=== PATIENT | male | born 1950 | race Caucasian/White ===

== ENCOUNTER 2024-11-13 07:41 | Emergency (ER) | payer BC, MEDICARE ==
--- NOTE | 2024-11-13 08:00 | ED ---
General Adult HPI - General Stated complaint: Cardiac Arrest Time Seen by Provider: 11/13/24 07:44 Source: RN notes reviewed, old records reviewed Limitations: altered mental status, physical limitation - History of Present Illness Initial comments: 74-year-old male presents as an afk-rp-sigejiif unwitnessed cardiac arrest. Patient was at a diner where he was found in his vehicle unresponsive. Parame dics were called and the patient was noted to be in a PEA arrest. Unknown downtime. CPR was started and the patient was intubated and brought to the hospital. He received chest compressions by the Chung device he had received 5 total doses of epinephrine during transport. His rhythm had changed to asystole shortly after paramedics began resuscitation. He remained in asystole. He received an ET tube and BVM ventilation. Patient had apparently reported cardiac history. No further history known at the time of arrival. Review of Systems ROS Statement: Those systems with pertinent positive or pertinent negative responses have been documented in the HPI. ROS Other: All systems not noted in ROS Statement are negative. General Exam General appearance: other (Cyanotic) Head exam: Present: atraumatic, normocephalic Eye exam: Present: other (Fixed 5 mm bilaterally) Respiratory exam: Present: other (Minimal bilateral air entry with BVM) Cardiovascular Exam: Present: other (No spontaneous heart sounds) GI/Abdominal exam: Absent: distended Extremities exam: Present: pedal edema Neurological exam: Present: other (No gag, no corneal reflex, no spontaneous respirations) Skin exam: Present: cyanosis Medical Decision Making - Medical Decision Making Was pt. sent in by a medical professional or institution (, PA, DIGITAL MARKETING INTERN, urgent care, hospital, or residential...) When possible be specific @ -No Did you speak to anyone other than the patient for history (EMS, parent, family, police, friend...)? What history was obtained from this source @ -Paramedics provide history and details of prehospital resuscitation. Did you review nursing and triage notes (agree or disagree)? Why? @ -I reviewed and agree with nursing and triage notes Were old charts reviewed (outside hosp., previous admission, EMS record, old EKG, old radiological studies, urgent care reports/EKG's, residential records)? Report findings @ -No old charts were reviewed Differential Diagnosis cardiac arrest H's and T's EKG interpreted by me (3pts min.). @ -As above X-rays interpreted by me (1pt min.). @ -None done CT interpreted by me (1pt min.). @ -None done U/S interpreted by me (1pt. min.). @ -None done What testing was considered but not performed or refused? (CT, X-rays, U/S, labs)? Why? @ -None What meds were considered but not given or refused? Why? @ -None Did you discuss the management of the patient with other professionals (janessa dunlap i.e. , PA, DIGITAL MARKETING INTERN, lab, RT, psych nurse, manager social work, mastic floor layer, teacher, targeting acquisition officer, briefcase sewer)? Give summary @ -No Was smoking cessation discussed for >3mins.? @ -No Was critical care preformed (if so, how long)? @ -No Were there social determinants of health that impacted care today? How? (Homelessness, low income, unemployed, alcoholism, drug addiction, transportation, low edu. Level, literacy, decrease access to med. care, snf, rehab)? @ -No Was there de-escalation of care discussed even if they declined (Discuss DNR or withdrawal of care, Hospice)? DNR status @ -No What co-morbidities impacted this encounter? (DM, HTN, Smoking, COPD, CAD, Cancer, CVA, ARF, Chemo, Hep., AIDS, mental health diagnosis, sleep apnea, morbid obesity)? @Coronary disease Was patient admitted / discharged? Hospital course, mention meds given and route, prescriptions, significant lab abnormalities, going to OR and other pertinent info. @ -74-year-old male presenting as an [id number] unwitnessed arrest with unknown total downtime approximately 25 to 30 minutes of map colorer resuscitation and transport time. Patient was intubated in the field and received compressions with the Chung device. This was continued upon arrival and an additional dose of epinephrine was given. Patient remained in asystole with no signs of life. Time of was called at 0741. Primary has been paged and ME will be contacted. Undiagnosed new problem with uncertain prognosis? @ -No Drug Therapy requiring intensive monitoring for toxicity (Heparin, Nitro, Insulin, Cardizem)? @ -No Were any procedures done? @ -No Diagnosis/symptom? @Hvi-[id number]-bqgyoudb cardiac arrest Acute, or Chronic, or Acute on Chronic? @Acute Uncomplicated (without systemic symptoms) or Complicated (systemic symptoms)? @ -Default Side effects of treatment? @ -No Exacerbation, Progression, or Severe Exacerbation? @ -No Poses a threat to life or bodily function? How? (Chest pain, [place], [place], pneumonia, PE, COPD, DKA, ARF, appy, cholecystitis, CVA, Diverticulitis, Homicidal, Suicidal, threat to staff... and all critical care pts) @ - Disposition Clinical Impression: Cardiopulmonary arrest Disposition: Condition: Undetermined Is patient prescribed a controlled substance at d/c from ED?: No Referrals: None,Stated [Primary Care Provider] - 1-2 days Time of Disposition: 07:41 Preliminary Cause of : Cardiopulmonary arrest
[2024-11-13 10:16] VITALS: PULSE 0; RESP 0
== END 2024-11-13 11:19 | disposition expired ==
LOC: EC 07:41
DX: I46.9 Cardiac arrest, cause unspecified (principal)
CPT/HCPCS: 99285 ×2; 96374 ×2; 92950; J0169